=== PATIENT | male | born 1970 | race Caucasian/White ===

== ENCOUNTER 2020-08-11 05:23 | Day surgery (SDC) | payer OTHER ==
[2020-08-07 14:07] LABS: BASOPHILS # (AUTO) 0.1 X10'3 (0-0.2); BASOPHILS % (AUTO) 0.9 % (0-1); EOSINOPHILS # (AUTO) 0.3 X10'3 (0-0.9); EOSINOPHILS % (AUTO) 4.6 % (0-6); LYMPHOCYTES # (AUTO) 1.4 X10'3 (1.1-4.8); LYMPHOCYTES % (AUTO) 21.7 % (21-51); MEAN CORPUSCULAR HEMOGLOBIN 34.1 PG (27.0-31.0); MEAN CORPUSCULAR HGB CONC 33.3 g/dL (33.0-36.5); MEAN CORPUSCULAR VOLUME 102.3 FL (78-98); MEAN PLATELET VOLUME 6.8 FL (7.4-10.4); MONOCYTES # (AUTO) 0.5 X10'3 (0-0.9); MONOCYTES % (AUTO) 7.6 % (2-12); NEUTROPHILS # (AUTO) 4.1 X10'3 (1.8-7.7); NEUTROPHILS % (AUTO) 65.2 % (42-75); PRE OP HEMATOCRIT 44.1 % (42.0-52.0); PRE OP HEMOGLOBIN 14.7 g/dL (14.0-17.9); PRE OP PLATELET COUNT 279 X10'3 (140-440); RED BLOOD COUNT 4.31 X10'6 (4.70-6.10); RED CELL DISTRIBUTION WIDTH 13.5 % (11.5-14.5)
[2020-08-07 14:52] LABS: ALBUMIN 3.8 G/DL (3.4-5.0); BLOOD UREA NITROGEN 18 MG/DL (7-18); BUN/CREATININE RATIO 16.8 (5.4-32.0); CALCIUM 9.1 MG/DL (8.5-10.1); CHLORIDE 104 MMOL/L (99-107); CREATININE 1.07 MG/DL (0.60-1.10); PRE OP ANION GAP 11 (8-16); PRE OP GLUCOSE 92 MG/DL (70-104); PRE OP POTASSIUM 4.4 MMOL/L (3.4-5.1); PRE OP SODIUM 140 MMOL/L (135-145); TOTAL CARBON DIOXIDE 24.7 MMOL/L (24-32); eGFR 73 ML/MIN
[2020-08-07 15:52] LABS: ALKALINE PHOSPHATASE 84 IU/L (46-116); PRE OP ALT 32 U/L (30-65); PRE OP AST 24 U/L (10-37); PRE OP BILIRUB, TOTAL 0.4 MG/DL (0.0-1.0); TOTAL PROTEIN 7.8 G/DL (6.4-8.2)
[2020-08-11] VITALS (8 sets, daily range): BP systolic 93–116; BP diastolic 45–68
[~2020-08-11] VITALS: Ht 172.7 cm; Wt 127.0 kg
[~2020-08-11 05:23] MED LIST: HYDR-3964 PO; OLME-11 PO; ringers solution, lacted 1,000 ML IV SCH
[2020-08-11] MEDS ORDERED: cefazolin/dext.iso 2gm/100ml IV ONE (05:30)
[2020-08-11] MEDS ORDERED: famotidine 20mg tablet PO ONE (05:30)
[2020-08-11] MEDS ORDERED: LIDOcaine 1% (10mg/ml) 2ml vial ONE (06:15)
[2020-08-11] MEDS ORDERED: BUPIVAcaine/PF 2.5 mg/ml (0.25%) 30ml vial ONE (06:49)
[2020-08-11] MEDS ORDERED: sevoflurane 250ml liquid IH ONE (08:09)
[2020-08-11] MEDS ORDERED: acetaminophen 1000 MG/100ml vial IV ONE (08:09)
[2020-08-11] MEDS ORDERED: midazolam 1 mg/ML 2ml injection ONE (08:13)
[2020-08-11] MEDS ORDERED: fentaNYL/PF 50MCG/1 ML 2ML syringe ONE ×2 (08:13→08:49)
[2020-08-11] MEDS ORDERED: ringers solution, lacted 1,000 ML IV SCH (09:05)
[2020-08-11] MEDS ORDERED: ondansetron/PF 4mg/2ml inj IV PRN (09:05)
[2020-08-11] MEDS ORDERED: morphine 2 MG/ML inj. syringe IV PRN (09:05)
[2020-08-11] MEDS ORDERED: morphine 4 MG/ML inj SYRINge IV PRN (09:05)
[2020-08-11] MEDS ORDERED: meperidine/PF 25mg/ml syringe IV PRN ×3 (09:05)
[2020-08-11] MEDS ORDERED: proCHLORperazine 10 MG/2 ml inj IV PRN (09:05)
--- NOTE | 2020-08-11 09:35 | NUR ---
Received from OR via , accompanied by Anesthesiologist and report given by Anesthesiolgist. PATIENT A&OX4, DENIES PAIN, V/S WNL, NEUROVASCULAR CHECKS INTACT. 20G RUE. LEFT ELBOW DRESSING CDI IN [place]
[2020-08-11] MEDS ORDERED: HYDROcodone/acetaminophen 10/325mg tab PO PRN (09:50)
--- NOTE | 2020-08-11 10:35 | NUR ---
PATIENT A&OX4, DENIES PAIN, V/S WNL, NEUROVASCULAR CHECKS INTACT. 20G RUE D/C. LEFT ELBOW DRESSING CDI IN [place]. I HAVE REVIEWED D/C INSTRUCTIONS WITH PATIENT AND HE HAS VERBALIZED UNDERSTANDING. PATIENT D/C HOME WITH ALL BELONGINGS AND GAVE TRANSPORT.
[2020-08-11] MEDS ORDERED: dexamethasone sod phosphate 4mg/ml inj. ONE (11:34)
[2020-08-11] MEDS ORDERED: ondansetron/PF 4mg/2ml inj ONE (11:34)
[2020-08-11] MEDS ORDERED: propofol inj 20 ML IV ONE (11:34)
[2020-08-11] MEDS ORDERED: ePHEDrine 50MG/ML INJ. ONE (11:34)
[2020-08-11] MEDS ORDERED: phenylephrine 10mg/ml inj. ONE (11:34)
[2020-08-11] MEDS ORDERED: LIDOcaine 1%/PF 5ML 10 MG/ML VIAL ONE (11:34)
[2020-08-11] MEDS ORDERED: ROPIVAcaine 0.5% (5mg/ml) 30ml vial ONE (11:35)
== END 2020-08-11 10:35 | disposition home or self-care (01) ==
LOC: PAS 05:23
PROVIDERS: ATTEND Orthopaedic Surgery
DX: S46.212A Strain of muscle, fascia and tendon of other parts of biceps, left arm, initial encounter (principal); M77.8 Other enthesopathies, not elsewhere classified; M25.522 Pain in left elbow; Z68.41 Body mass index [BMI] 40.0-44.9, adult; I10 Essential (primary) hypertension; G89.18 Other acute postprocedural pain
CPT/HCPCS: 24342; 36415; 80053; 85025; 93005; A6222; C1713; J0131; J1100; J2001; J2250; J2370; J2405; J2704; J3010; J3490; J7120; 64417; 76942; A4215; A4565; A4618; A6449; A7000; J2795